=== PATIENT | female | born 1985 | race Caucasian/White ===

== ENCOUNTER 2017-10-10 19:29 | Emergency (ER) | payer OTHER ==
[~2017-10-10] VITALS: Ht 149.9 cm; Wt 81.7 kg
[~2017-10-10 19:29] MED LIST: BENTYL 20 MG TA20 M1 PO; FLAGYL500 MG PO; NAPROSYN500 MG PO; NOHOMEMEDICATIONS; NORCO 5-325 TA1 EACH PO; PHENERGAN 25 MG25 M1 PO; PROAIR HFA8.5 GM IH; REGLAN 10 MG TA10 MG PO; ULTRACET TABLE1 EACH PO; ZOFRAN ODT4 M1 PO; ZOFRAN4 MG PO
[2017-10-10 20:27] LABS: INFLUENZA A ANTIGEN None Detected (None Detect); INFLUENZA B ANTIGEN None Detected (None Detect)
[2017-10-10] MEDS ORDERED: Magic Mouthwash PO (21:09)
[2017-10-10] MEDS ORDERED: AMOXICILLIN 50500 M1 PO (21:09)
[2017-10-10] MEDS ORDERED: IBUPROFEN 800800 M1 PO (21:09)
[2017-10-10 21:19] VITALS: BP 126/70
== END 2017-10-10 21:20 | disposition home or self-care (01) ==
LOC: M.ERS 19:29
PROVIDERS: Personal Emergency Response Attendant
DX: J03.90 Acute tonsillitis, unspecified (principal); F17.210 Nicotine dependence, cigarettes, uncomplicated; Z90.49 Acquired absence of other specified parts of digestive tract; Z88.2 Allergy status to sulfonamides